=== PATIENT | male | born 1955 | race Caucasian/White ===

== ENCOUNTER 2018-09-28 10:27 | Outpatient (CLI) | payer MEDICARE ==
--- NOTE | 2018-09-28 11:31 | RAD ---
PA AND LATERAL CHEST XRAY: DATE: 09/28/2018. HISTORY: Cough. Flu-like symptoms for 2 weeks. COMPARISON: None available. FINDINGS: Cardiac silhouette and pulmonary vasculature are within normal limits. There is a nodular density se en in the left infrahilar region probably related to superimposition of structures opposed to a pulmo nary nodule, but followup evaluation in 3 months is recommended. The lungs are otherwise clear. Mil d vascular calcification is seen in the thoracic aorta. Degenerative changes are seen in the spine. IMPRESSION: Nodular density left infrahilar region probably related to superimposition of structures, but followu p chest x-ray in 3 months is recommended for further evaluation of this finding. CODE T POS: [facility]
== END 2018-09-28 10:28 | disposition home or self-care (01) ==
LOC: BICRAD 10:27
PROVIDERS: ATTEND Family Medicine
DX: R05 Cough (principal); J98.4 Other disorders of lung
CPT/HCPCS: 71046

== ENCOUNTER 2019-01-10 10:26 | Outpatient (CLI) | payer MEDICARE ==
--- NOTE | 2019-01-10 11:41 | RAD ---
EXAM: CHEST TWO VIEWS: History: Solitary pulmonary nodule follow up. Comparison: 09-28-18 FINDINGS: Again noted is a small nodular density in the left infrahilar region which appears stable from the pr ior plain film examination. Heart size is normal. The lungs are otherwise clear. IMPRESSION: Stable nodular density in the left infrahilar region. No new process. Atherosclerosis of the aorta, i f a prior chest CT scan has not been performed, it is suggested to perform that. POS: [facility]
== END 2019-01-10 10:27 | disposition home or self-care (01) ==
LOC: BICRAD 10:26
PROVIDERS: ATTEND Family Medicine
DX: R91.1 Solitary pulmonary nodule (principal); J98.4 Other disorders of lung; I70.0 Atherosclerosis of aorta
CPT/HCPCS: 71046

== ENCOUNTER 2020-12-19 16:45 | Emergency (ER) | payer MEDICARE | END 2020-12-19 17:14 | disposition home or self-care (01) | LOC: ERS 16:45 | DX: K40.90 Unilateral inguinal hernia, without obstruction or gangrene, not specified as recurrent (principal) | CPT/HCPCS: 99283 ==

== ENCOUNTER 2021-01-10 10:39 | Outpatient (CLI) | payer MEDICARE ==
[2021-01-10 11:52] LABS: #Eosinphils 0.1 10x3/uL (0.0-0.5); #Monocytes 0.7 10x3/uL (0.0-1.1); #Neutrophils 3.1 10x3/uL (1.5-8.4); %Basophils 0.7 % (0.0-2.0); %Eosinophils 1.5 % (0.0-6.0); %Lymphocytes 32.1 % (18.0-47.0); %Neutrophils 53.4 % (40.0-75.0); Hemoglobin 15.1 g/dL (13.5-17.5); Mean Corpuscular HGB CONC 33.9 g/dL (32.0-36.0); Mean Corpuscular Hemoglobin 30.8 pg (27.0-33.0); Mean Platelet Volume 10.1 fl (7.4-10.4); Platelet Count 166 10x3/uL (150-450); RBC Distribution Width 12.1 % (11.5-14.5); White Blood Cell (WBC) Count 5.8 10x3/uL (3.5-10.5)
[2021-01-10 12:13] LABS: ALT (SGPT) 22 U/L (8-55); AST (SGOT) 18 U/L (5-34); Albumin 4.5 g/dL (3.4-4.8); Alkaline Phosphatase 77 U/L (40-110); Anion Gap 11 mmol/L (10-20); BUN (Urea Nitrogen) 13 mg/dL (8.4-25.7); Bilirubin, Total 0.3 mg/dL (0.2-1.2); Calc. Creatinine Clearance 0 mL/min (70-130); Calcium 9.5 mg/dL (7.8-10.44); Carbon Dioxide 27 mmol/L (23-31); Chloride 107 mmol/L (98-107); Globulin 2.3 g/dL (2.4-3.5); Glucose 124 mg/dL (80-115); Potassium 4.5 mmol/L (3.5-5.1); Protein, Total 6.8 g/dL (5.8-8.1); Sodium 140 mmol/L (136-145)
[2021-01-10 18:36] LABS: SARS-CoV-2 PCR by NAA Not Detected (NotDetected)
== END 2021-01-10 10:40 | disposition home or self-care (01) ==
LOC: LABBT 10:39
PROVIDERS: ATTEND Surgery
DX: Z01.812 Encounter for preprocedural laboratory examination (principal); Z20.822 Contact with and (suspected) exposure to COVID-19
CPT/HCPCS: 80053; 85025; 93005; U0003; U0005; 87635; 93010

== ENCOUNTER 2021-01-15 07:17 | Day surgery (SDC) | payer MEDICARE ==
[2021-01-14 10:05] VITALS: BMI 31.2
[2021-01-15] MEDS ORDERED: Lidocaine 2% w/Epinephrine 1:200K 20 ML VIAL ONE (09:14)
[2021-01-15] MEDS ORDERED: Bupivacaine 0.25% HCL 30 ML VIAL ONE (09:14)
[2021-01-15] MEDS ORDERED: Fentanyl 100 MCG/2 ML VIAL ONE (09:30)
[2021-01-15] MEDS ORDERED: Ondansetron PF 4 MG/2 ML Vial ONE (09:41)
[2021-01-15] MEDS ORDERED: Ketorolac Tromethamine 30 MG/ML VIAL ONE (09:41)
[2021-01-15] MEDS ORDERED: ePHEDrine 50 MG/ML VIAL ONE (09:41)
[2021-01-15] MEDS ORDERED: Lidocaine 1% PF 5 ML VIAL ONE (09:41)
[2021-01-15] MEDS ORDERED: PHENYLEPHRINE-NS 100 MCG/ML 10 ML SYRINGE ONE (09:41)
[2021-01-15] MEDS ORDERED: Metoclopramide HCl 10 MG/2 ML VIAL ONE (09:41)
[2021-01-15] MEDS ORDERED: PROPOFOL 200 MG/20 ML VIAL ONE (09:41)
== END 2021-01-15 12:30 | disposition home or self-care (01) ==
LOC: SDC 07:17
PROVIDERS: ATTEND Surgery
PROC: 0YU60JZ Supplement Left Inguinal Region with Synthetic Substitute, Open Approach (ICD-10-PCS; principal; 2021-01-15)
DX: K40.90 Unilateral inguinal hernia, without obstruction or gangrene, not specified as recurrent (principal); E78.00 Pure hypercholesterolemia, unspecified; E07.9 Disorder of thyroid, unspecified; Z79.84 Long term (current) use of oral hypoglycemic drugs; Z79.899 Other long term (current) drug therapy
CPT/HCPCS: 49505; C1781; J1885; J2405; J2704; J2765; J3010; J3490; S0020

== ENCOUNTER 2022-03-10 11:21 | Emergency (ER) | payer OTHER, MEDICARE | END 2022-03-10 12:39 | disposition home or self-care (01) | LOC: ERS 11:21 | DX: S00.83XA Contusion of other part of head, initial encounter (principal); E03.9 Hypothyroidism, unspecified; W50.0XXA Accidental hit or strike by another person, initial encounter; Y92.61 Building [any] under construction as the place of occurrence of the external cause; Z79.84 Long term (current) use of oral hypoglycemic drugs; Z79.899 Other long term (current) drug therapy | CPT/HCPCS: 70450; 72125 ==

== ENCOUNTER 2023-10-17 06:46 | Inpatient (IN) | payer MEDICARE ==
[2023-10-17 07:46] LABS: #Eosinphils 0.1 thou/uL (0.0-0.7); #Monocytes 0.6 thou/uL (0.11-0.59); #Neutrophils 3.1 thou/uL (1.40-6.50); %Basophils 0.4 % (0.0-1.0); %Eosinophils 1.8 % (0.0-10.0); %Lymphocytes 22.9 % (21.0-51.0); %Monocytes 11.4 % (0.0-10.0); %Neutrophils 63.1 % (42.0-75.0); Hematocrit 41.8 % (42.0-52.0); Hemoglobin 14.2 g/dL (14.0-18.0); Mean Corpuscular Hemoglobin 31.7 pg (27.0-31.0); Mean Corpuscular Volume 93.3 fl (78.0-98.0); Mean Platelet Volume 9.8 fL (7.4-10.4); Platelet Count 175 10x3/uL (130-400); RBC Distribution Width 12.7 % (11.5-14.5); Red Blood Cell (RBC) Count 4.48 mill/uL (4.70-6.10); White Blood Cell (WBC) Count 4.9 10x3/uL (4.8-10.8)
[2023-10-17 08:01] LABS: INR-International Normal Ratio 0.8; Prothrombin Time 11.7 sec (12.0-14.7)
[2023-10-17 08:02] LABS: PTT 25.1 sec (22.9-36.1)
[2023-10-17 08:15] LABS: ALT (SGPT) 20 U/L (8-55); AST (SGOT) 17 U/L (5-34); Alkaline Phosphatase 66 U/L (40-110); Anion Gap 16 mmol/L (10-20); BUN (Urea Nitrogen) 13 mg/dL (8.4-25.7); Bilirubin, Total 0.3 mg/dL (0.2-1.2); Calc. Creatinine Clearance 0 mL/min (70-130); Calcium 8.9 mg/dL (7.8-10.44); Carbon Dioxide 21 mmol/L (23-31); Chloride 108 mmol/L (98-107); Estimated GFR 88; Globulin 2.7 g/dL (2.4-3.5); Glucose 142 mg/dL (80-115); Potassium 4.2 mmol/L (3.5-5.1); Protein, Total 6.7 g/dL (5.8-8.1); Sodium 141 mmol/L (136-145)
[2023-10-17 08:20] LABS: Troponin I Less than 0.010 ng/mL (< 0.028)
[2023-10-17] MEDS ORDERED: Aspirin Chewable 81 MG TAB ONE (10:34)
[2023-10-17] MEDS ORDERED: HYDROcodone/Acetaminophen 5/325 mg Tablet PO PRN (11:06)
[2023-10-17] MEDS ORDERED: Dextrose 50% Abboject 50 ML SYRINGE SLOW IVP PRN (11:08)
[2023-10-17] MEDS ORDERED: Dextrose 5% in Water 1,000 ML IV PRN (11:08)
[2023-10-17] MEDS ORDERED: HumaLOG 300 UNITS/3 ML VIAL SC PRN (11:08)
[2023-10-17] MEDS ORDERED: Glucagon 1 MG/ML KIT IM PRN (11:08)
[2023-10-17] MEDS ORDERED: hydrALAZINE 20 MG/ML VIAL SLOW IVP PRN (11:08)
[2023-10-17] MEDS ORDERED: Ondansetron PF 4 MG/2 ML Vial IVP PRN (11:15)
[2023-10-17] MEDS ORDERED: Enoxaparin 40 MG (0.4 mL) SYRINGE SC SCH ×2 (11:15→17:45)
[2023-10-17] MEDS ORDERED: Acetaminophen 325 MG TAB PO PRN (11:16)
[2023-10-17] MEDS ORDERED: Iopamidol-370 76% 500 ML MDV (1 ML CHARGE) ONE (11:21)
[2023-10-17 11:24] LABS: Troponin I Less than 0.010 ng/mL (< 0.028)
[2023-10-17 14:59] LABS: Troponin I Less than 0.010 ng/mL (< 0.028)
[2023-10-17 17:03] VITALS: BMI 31.1
[2023-10-17] MEDS: Atorvastatin Calcium 40 MG TAB PO SCH (20:30)
[2023-10-18 05:20] LABS: #Eosinphils 0.1 thou/uL (0.0-0.7); #Monocytes 0.7 thou/uL (0.11-0.59); #Neutrophils 2.7 thou/uL (1.40-6.50); %Basophils 0.7 % (0.0-1.0); %Eosinophils 2.2 % (0.0-10.0); %Lymphocytes 35.5 % (21.0-51.0); %Monocytes 12.1 % (0.0-10.0); %Neutrophils 49.3 % (42.0-75.0); Hematocrit 43.7 % (42.0-52.0); Hemoglobin 14.3 g/dL (14.0-18.0); Mean Corpuscular HGB CONC 32.7 g/dL (32.0-36.0); Mean Corpuscular Hemoglobin 30.4 pg (27.0-31.0); Mean Platelet Volume 9.8 fL (7.4-10.4); Platelet Count 148 10x3/uL (130-400); RBC Distribution Width 12.6 % (11.5-14.5); White Blood Cell (WBC) Count 5.5 10x3/uL (4.8-10.8)
[2023-10-18 05:49] LABS: Anion Gap 11 mmol/L (10-20); BUN (Urea Nitrogen) 13 mg/dL (8.4-25.7); Calc. Creatinine Clearance 104 mL/min (70-130); Calcium 8.8 mg/dL (7.8-10.44); Carbon Dioxide 25 mmol/L (23-31); Cardiac Risk 4.5 (Less than 4.5); Chloride 106 mmol/L (98-107); Cholesterol 188 mg/dl (< 200 Desired); Estimated GFR 89; Glucose 132 mg/dL (80-115); HDL Cholesterol 42 mg/dL (>60 Neg Risk); LDL Cholesterol, Calculated 93 mg/dL; Potassium 4.1 mmol/L (3.5-5.1); Sodium 138 mmol/L (136-145); Triglycerides 265 mg/dL (Less than 150)
[2023-10-18] MEDS: Levothyroxine Sodium 50 MCG TAB PO SCH (06:12)
[2023-10-18 06:35] LABS: Hemoglobin A1c 6.4 % (4.0-6.0)
[2023-10-18] MEDS: metFORMIN 500 MG TAB PO SCH ×2 (09:33→20:27)
[2023-10-18] MEDS: Aspirin 81 mg Enteric Coated Tablet PO SCH (09:33)
[2023-10-18] MEDS: Enoxaparin 40 MG (0.4 mL) SYRINGE SC SCH (09:33)
[2023-10-18] MEDS ORDERED: Losartan 25 MG TAB PO SCH (17:30)
[2023-10-18] MEDS: Atorvastatin Calcium 40 MG TAB PO SCH (20:27)
[2023-10-19] MEDS: Levothyroxine Sodium 50 MCG TAB PO SCH (05:19)
[2023-10-19] MEDS ORDERED: Levothyroxine Sodium 50 MCG TAB PO SCH (06:00)
[2023-10-19] MEDS: Enoxaparin 40 MG (0.4 mL) SYRINGE SC SCH (08:56)
[2023-10-19] MEDS: metFORMIN 500 MG TAB PO SCH (08:57)
[2023-10-19] MEDS: Aspirin 81 mg Enteric Coated Tablet PO SCH (08:57)
[2023-10-19] MEDS ORDERED: Losartan 25 MG TAB PO SCH ×2 (09:00)
[2023-10-19 12:36] VITALS: BP 127/85; TEMP 96.5
== END 2023-10-19 13:51 | disposition home or self-care (01) | DRG 66 ==
LOC: ERS 06:46 → ERHOLD 10:10 → 2SE 16:05 → OBSVTOIN 10-19 10:26
PROVIDERS: ADMIT Student in an Organized Health Care Education/Training Program; ATTEND Family Medicine
DX: I63.322 Cerebral infarction due to thrombosis of left anterior cerebral artery (principal); E11.9 Type 2 diabetes mellitus without complications; E03.9 Hypothyroidism, unspecified; E78.5 Hyperlipidemia, unspecified; I16.0 Hypertensive urgency; R29.703 NIHSS score 3; G83.11 Monoplegia of lower limb affecting right dominant side; E66.9 Obesity, unspecified; Z98.890 Other specified postprocedural states; Z79.899 Other long term (current) drug therapy; Z79.890 Hormone replacement therapy; Z79.84 Long term (current) use of oral hypoglycemic drugs; Z82.49 Family history of ischemic heart disease and other diseases of the circulatory system; Z83.3 Family history of diabetes mellitus
CPT/HCPCS: 0042T; 36415; 36416; 70450; 70496; 70498; 70551; 80048; 80053; 80061; 83036; 84443; 84484; 85025; 85610; 85730; 93005; 93306; 96372; G0378; J1650; Q9967